=== PATIENT | female | born 1965 | race Caucasian/White ===

== ENCOUNTER 2020-10-17 09:43 | Outpatient (CLI) | payer BC, OTHER ==
[2020-10-17] MEDS ORDERED: LEVO75TA5 PO (10:08)
[2020-10-17] MEDS ORDERED: [UNRECOGNIZED DRUG - OTHER] PO (10:08)
[2020-10-17] MEDS ORDERED: CHOL10003 PO (10:08)
[2020-10-17] MEDS ORDERED: OMEG1CAP39 PO (10:08)
[2020-10-17] MEDS ORDERED: CALCIUM PO (10:08)
[2020-10-17] MEDS ORDERED: [UNRECOGNIZED DRUG - MIXTURE] PO (10:08)
[2020-10-17] MEDS ORDERED: MAG PO (10:08)
[2020-10-17] MEDS ORDERED: ESCI5TAB8 PO (10:08)
[2020-10-17] MEDS ORDERED: ZINC50TA10 PO (10:08)
[2020-10-17] MEDS ORDERED: VITAMIN E PO (10:08)
[2020-10-17] MEDS ORDERED: GARL400T8 PO (10:08)
[2020-10-17 10:57] LABS: ANION GAP 4 mmol/L (5-15); CALCIUM 9.2 mg/dL (8.5-10.1); CHLORIDE 111 mmol/L (98-107); CREATININE 0.66 mg/dL (0.55-1.02)
[2020-10-17 11:01] LABS: BASOPHILS % (AUTO) 1 % (0-1); EOSINOPHILS % (AUTO) 0 % (1-7); LYMPHOCYTES % (AUTO) 46 % (22-44); MEAN CORPUSCULAR HEMOGLOBIN 29.9 pg (27.0-34.8); MEAN CORPUSCULAR HGB CONC 34.4 g/dL (32.4-35.8); MEAN PLATELET VOLUME 7.6 fL (7.4-10.4); MONOCYTES % (AUTO) 9 % (2-9); NEUTROPHILS % (AUTO) 44 % (42-75); PLATELET COUNT 252 x10^3/uL (130-400); RED BLOOD COUNT 4.85 x10^6/uL (3.82-5.3); RED CELL DISTRIBUTION WIDTH 13.7 % (9.6-15.2)
[2020-10-17 11:36] LABS: MD SCAN
== END 2020-10-17 23:59 | disposition home or self-care (01) ==
LOC: STAR 09:43
PROVIDERS: ATTEND Obstetrics & Gynecology
DX: Z01.812 Encounter for preprocedural laboratory examination (principal); Z20.822 Contact with and (suspected) exposure to COVID-19; N95.9 Unspecified menopausal and perimenopausal disorder
CPT/HCPCS: 80048; 85025; 87635

== ENCOUNTER → 2021-03-20 | Outpatient (CLI) | payer OTHER ==
[~2021-03-20] MED LIST: CALCIUM PO; CHOL10003 PO; ESCI5TAB8 PO; GARL400T12 PO; LEVO75TA5 PO; MAG PO; OMEG1CAP39 PO; REGADENOSON 0.4 MG/5 ML SYRINGE ONE; VITAMIN E PO; ZINC50TA10 PO; [UNRECOGNIZED DRUG - MIXTURE] PO; [UNRECOGNIZED DRUG - OTHER] PO
== END | disposition home or self-care (01) ==
LOC: CFH 07:44
PROVIDERS: ATTEND Internal Medicine Cardiovascular Disease
DX: I10 Essential (primary) hypertension (principal); R07.9 Chest pain, unspecified; R94.31 Abnormal electrocardiogram [ECG] [EKG]
CPT/HCPCS: 78452; 93017; A9502; J2785